=== PATIENT | male | born 1995 | race African-American/Black ===

== ENCOUNTER 2021-05-29 21:52 | Emergency (ER) | payer OTHER ==
[~2021-05-29] VITALS: Ht 188 cm; Wt 122.7 kg
--- NOTE | 2021-05-29 22:07 | PHYS DOC ---
Adult General HPI HPI Patient is a 25-year-old male who presents with group home guards from group home with lacerations on upper left arm and lower right leg that were self-inflicted with a razor blade just before coming into the emergency department. States that he did it just to get out of snf for some time and does not want to commit suicid e. Denies any homicidal ideation, denies any hallucinations. Denies any alcohol or drug use. States he did it solely because he was in group home in 1 to get out. Review of Systems Review of Systems Review of systems otherwise unremarkable except noted in HPI Physical Exam Physical Exam Constitutional: Well developed, well nourished, no acute distress, non-toxic appearance. [] HENT: Normocephalic, atraumatic, Neck: Normal range of motion, no tenderness, supple, no stridor. [] Cardiovascular:Heart rate regular rhythm, no murmur [] Lungs & Thorax: Bilateral breath sounds clear to auscultation [] Skin: Warm, dry, no erythema, no rash. [] Extremities: Neurovascular exam intact, 10 cm linear laceration on upper left arm, bleeding controlled, 3 cm linear laceration on the right lower extremity, bleeding controlled Neurologic: Alert and oriented X 3, normal motor function, normal sensory function, no focal deficits noted. [] Psychologic: Affect normal, judgment abnormal, mood normal, no SI, no HI, no thoughts of harming self with the intent of killing oneself, no hallucinations, no drug or alcohol use EKG EKG [] Radiology/Procedures Radiology/Procedures The 10 cm laceration on the upper left arm, wash significantly with sterile water, topical anesthesia applied for 30 minutes, anesthesia achieved, 11 sutures of 4-0 Ethilon placed successfully, cleaned and bandaged The 3 cm laceration on right lower extremity, washed significantly with sterile water, topical anesthesia placed for 30 minutes, anesthesia achieved, 4 sutures of 4-0 Ethilon placed successfully, cleaned and bandaged [] Heart Score C/O Chest Pain: No Risk Factors: Risk Factors: DM, Current or recent (<one month) smoker, HTN, HLP, family history of CAD, obesity. Risk Scores: Risk Factors: DM, Current or recent (<one month) smoker, HTN, HLP, family history of CAD, obesity. Course & Med Decision Making Course & Med Decision Making Patient is a 25-year-old male who presents with lacerations on upper left forearm and right lower extremity that were self-inflicted in an attempt to just get out of snf Vital signs not concerning. Physical exam noted above. Given pain medicine. Wound cleaned, and sutured. Bandaged. Given wound care instructions. Started on antibiotics. Tetanus updated. Discussed wound management at home and given education. Advised to follow-up with facility physician as soon as possible and set up an appointment in 7 days for wound check and suture removal. Advised on Tylenol and ibuprofen as needed. Advised not to self-harm anymore as he got moy and did not hit a major vessel. Gave return precautions to the ED. Patient grateful, verbalized understanding and agreed with plan of discharge. [] Dragon Disclaimer Dragon Disclaimer This electronic medical record was generated, in whole or in part, using a voice recognition dictation system. Departure Departure: Impression: Primary Impression: Laceration of left upper arm Additional Impression: Laceration of right lower leg Disposition: HOME / SELF CARE / HOMELESS Condition: GOOD Referrals: PCP,ELIZABETH (PCP) RESHMA COX MD Patient Instructions: Laceration Care, Adult Additional Instructions: Thank you for coming into the emergency department tonight and allowing us to take care of you. Please read the attached information carefully to go back over things we discussed. Please keep the area clean, dry and bandaged as we discussed and demonstrated. Please take all of your antibiotics as prescribed and until gone. Please keep your current bandages on for 24 hours and do not allow to get wet. Please after the 24 hours change your dressing daily and wash with warm soap and water. Please see the facility physician as soon as possible to update on ED visit and set up a follow-up in 7 days for wound check and suture removal. Please come back to the ED with new or concerning symptoms as discussed. Scripts Clindamycin Hcl (CLINDAMYCIN HCL) 300 Mg Capsule 1 CAP PO BID for wound for 7 Days, #14 CAP Prov: TAYLOR CARUSO MD 05/29/21 Problem Qualifiers TAYLOR CARUSO MD May 29, 2021 22:07
[2021-05-29] MEDS ORDERED: LIDOCAINE/EPI/TETRACAINE TOPICAL GEL 3 ML. TP ONE ×2 (22:48→23:30)
[2021-05-29] MEDS ORDERED: CLINDAMYCIN HCL 150 MG CAPSULE PO ONE (23:00)
[2021-05-29] MEDS ORDERED: ACETAMINOPHEN 500 MG TABLET PO ONE (23:00)
[2021-05-29] MEDS ORDERED: IBUPROFEN 600 MG TABLET. PO ONE (23:00)
[2021-05-29] MEDS ORDERED: CLIN-95 PO (23:03)
[2021-05-29] MEDS ORDERED: DIPHTH,PERTUSS(ACELL),TET TOX 0.5 ML DISP.SYRIN. VAX IM ONE (23:30)
[2021-05-30 00:15] VITALS: BP 138/86
== END 2021-05-30 00:15 | disposition home or self-care (01) ==
LOC: ER 21:52
DX: S41.112A Laceration without foreign body of left upper arm, initial encounter (principal); S81.811A Laceration without foreign body, right lower leg, initial encounter; X78.8XXA Intentional self-harm by other sharp object, initial encounter; Y93.89 Activity, other specified; Y92.89 Other specified places as the place of occurrence of the external cause; Y99.8 Other external cause status
CPT/HCPCS: 12005; 90471; 90715; 99284